=== PATIENT | male | born 1990 | race Caucasian/White ===

== ENCOUNTER 2019-01-07 18:45 | Emergency (ER) | payer MEDICAID ==
[~2019-01-07] VITALS: Ht 180.3 cm; Wt 106.6 kg
--- NOTE | 2019-01-07 18:53 | NUR ---
ED Nurse Note: pt walked in c/o back pain, pt states he was visiting his dad today and was on the bed laying down and when he rolled he might have sprained his back. no obvious deformity nor injury noted at this time will cont monitor.
[2019-01-07] MEDS ORDERED: NKM (18:54)
[2019-01-07 18:57] VITALS: BP 112/77
[2019-01-07] MEDS ORDERED: Methocarbamol 750mg tab ORAL ONE (19:15)
[2019-01-07] MEDS ORDERED: Ketorolac 60mg Inj IM ONE (19:15)
[2019-01-07] MEDS ORDERED: ROBAXIN-750750 MG PO (19:22)
[2019-01-07] MEDS ORDERED: IBUPROFEN600 MG ORAL (19:22)
[2019-01-07 19:28] VITALS: BP 112/77
--- NOTE | 2019-01-07 19:28 | NUR ---
ED Nurse Note: PT CLEARED TO BE D/C PER ER PROVIDER, DISCHARGE AND AFTERCARE INSTRUCTION W/ PRESCRIPTION GIVEN, EDUCATION DONE VIA DISCUSSION AND HANDOUT, PT VERBALIZED UNDERSTANDING AND AGREES WITH PLAN, PT ADVISED TO FOLLOW UP WITH PCP TO CONTINUE CARE OR RETURN TO ED IF CHANGES IN CONDITION, VSS, AMBULATORY W/ STEADY GAIT, LEFT W/ ALL BELONGINGS.
--- NOTE | 2019-01-07 21:14 | Emergency Room Report ---
History of Present Illness General Chief Complaint: Back Pain-No Injury Source: Patient Present Illness HPI Patient is a 28-year-old male presenting for acute back pain. He states that he was bending over for approximately 30 minutes when he felt a sharp pain to his lower back. Pain described as a 10 out of 10 dull ache and worse with movement. Does not radiate. He denies any numbness or tingling. He denies previous back injury. Denies any other symptoms including incontinence Allergies: Coded Allergies: No Known Allergies (Unverified , 01/07/19) Patient History Past Medical History: see triage record Pertinent Family History: none Reviewed Nursing Documentation: PMH: Agreed; PSxH: Agreed Nursing Documentation-PMH Past Medical History: No Stated History Review of Systems All Other Systems: negative except mentioned in HPI Physical Exam Vital Signs Date Time Temp Pulse Resp B/P (MAP) Pulse Ox O2 Delivery O2 Flow Rate FiO2 01/07/19 18:52 98.8 68 18 112/77 (89) 98 Room Air Sp02 EP Interpretation: reviewed, normal General Appearance: no apparent distress, alert, GCS 15, non-toxic Head: normocephalic, atraumatic Respiratory: chest non-tender, lungs clear, normal breath sounds, speaking full sentences Cardiovascular #1: regular rate, rhythm, no edema Musculoskeletal: normal range of motion, tender - lumbar paraspinal muscles Neurologic: alert, oriented x3, responsive, motor strength/tone normal, sensory intact, normal gait, speech normal Psychiatric: judgement/insight normal, memory normal, mood/affect normal, no suicidal/homicidal ideation Medical Decision Making PA Attestation Dr. Sun is my supervising physician. Patient management was discussed with my supervising physician Diagnostic Impression: Primary Impression: Strain of lumbar paraspinal muscle Qualified Codes: S39.012A - Strain of muscle, fascia and tendon of lower back , initial encounter ER Course Patient is a 28-year-old male presenting for acute back pain. Ddx considered include but not limited to sprain/strain, fracture, contusion, disc herniation PE: Vitals stable. NAD Back appears normal. No midline tenderness or step-offs. TTP over lumbar paraspinal muscles. Normal gait Patient is given IM Toradol and Robaxin and pain has significantly decreased to a 2 out of 10. He states that he is ready for discharge He will be discharged home with prescription for ibuprofen and Robaxin. He is given information regarding heat therapy. He is told to follow-up with his primary doctor as soon as possible. ER precautions given Last Vital Signs Date Time Temp Pulse Resp B/P (MAP) Pulse Ox O2 Delivery O2 Flow Rate FiO2 01/07/19 19:28 98.8 65 18 112/77 98 Room Air Status: improved Disposition: HOME, SELF-CARE Condition: Improved Scripts Methocarbamol* (ROBAXIN-750*) 750 Mg Tablet 750 MG PO TID, #21 TAB 0 Refills Prov: JUVENAL PERRY 01/07/19 Ibuprofen* (MOTRIN*) 600 Mg Tablet 600 MG ORAL Q8H PRN for For Pain, #30 TAB 0 Refills Prov: JUVENAL PERRY 01/07/19 Referrals: [facility],REFERRING (PCP) NOT CHOSEN [facility]/MD,REFERRING Patient Instructions: Back Pain, Adult Additional Instructions: I discussed my findings with the patient. All questions and concerns have been answered. Treatment and medication compliance have been addressed. I advised the patient that they need to follow up with PMD in 3-5 days. Return to ED if pain remains or worsens, numbness or tingling occurs, new rash is noticed, fever is noticed, or if needed for any reason. Patient verbalized understanding of discharge instructions. JUVENAL PERRY Jan 07, 2019 21:14
== END 2019-01-07 19:28 | disposition home or self-care (01) ==
LOC: EMR 19:03
DX: S39.012A Strain of muscle, fascia and tendon of lower back, initial encounter (principal); X58.XXXA Exposure to other specified factors, initial encounter; Y92.9 Unspecified place or not applicable
CPT/HCPCS: 96372; 99283